=== PATIENT | male | born 1960 | race Caucasian/White ===

== ENCOUNTER 2017-09-01 03:02 | Emergency (ER) | payer OTHER ==
[2017-09-01] MEDS ORDERED: KETOROLAC 60 MG/2 ML VIAL IM STA (03:22)
[2017-09-01] MEDS ORDERED: KETOROLAC 60 MG/2 ML VIAL ONE (03:32)
[2017-09-01 03:46] LABS: PH,URINE 5.5 PH (5.0-7.5)
[2017-09-01 03:56] LABS: BILIRUBIN,URINE NEGATIVE (NEGATIVE); UA CHARGE (STRIP ONLY) YES; UR CULTURE IF IND NOT INDICATED
[2017-09-01] MEDS ORDERED: LIDOCAINE PATCH 5% TOP STA (04:00)
[2017-09-01] MEDS ORDERED: diazePAM 5 MG TABLET PO STA (04:00)
[2017-09-01] MEDS ORDERED: DEXAMETHASONE 10 MG/ML VIAL PO STA (04:00)
[2017-09-01] MEDS ORDERED: CHERRY SYRUP 10 ML UDC PO ONE (04:12)
[2017-09-01] MEDS ORDERED: diazePAM 5 MG TABLET PO ONE (04:12)
[2017-09-01] MEDS ORDERED: DEXAMETHASONE 10 MG/ML VIAL ONE (04:12)
[2017-09-01] MEDS ORDERED: LIDOCAINE PATCH 5% TOP ONE (04:13)
--- NOTE | 2017-09-01 04:26 | ED Physician Documentation ---
PD HPI BACK INJURY - Stated complaint Stated Complaint: RT SIDE,RT BACK PAIN - History obtained from History obtained from: Patient - History of Present Illness Location: Right, Upper, Lower Where injury occurred: Street Timing - onset: How many weeks ago (3) Timing - details: Gradual onset Quality: Pain, Spasm, Aching, Throbbing Worsened by: Moving, Palpating Associated symptoms: No: Fever, Weakness Contributing factors: No: Prior back surgery Similar symptoms before: Has not had sx before Recently seen: Not recently seen - Additional information Additional information: Patient is a 57 year old male with a history of diabetes who is presenting to the emergency department for back pain. patient states that about 3 weeks ago he was out hunting and he was carrying bags on his right side. since that time he has developed persisted right sided back and shoulder pain and has been unable to take a deep breath. Patient has been taking motrin with little relief. Review of Systems Constitutional: denies: Fever, Chills Eyes: reports: Reviewed and negative Ears: reports: Reviewed and negative Nose: reports: Reviewed and negative Throat: reports: Reviewed and negative Respiratory: denies: Cough, Wheezing GI: denies: Abdominal Pain, Nausea, Vomiting : reports: Reviewed and negative. denies: Hematuria Skin: denies: Abrasion (s) Musculoskeletal: reports: Back pain Neurologic: denies: Generalized weakness, Focal weakness, Head injury PD PAST MEDICAL HISTORY - Past Medical History Past Medical History: Yes Cardiovascular: None Respiratory: None Neuro: None Endocrine/Autoimmune: Type 2 diabetes GI: None : None HEENT: None Psych: None Musculoskeletal: None Derm: None - Past Surgical History Past Surgical History: No - Present Medications Home Medications: Ambulatory Orders Medication Instructions Recorded Confirmed Atorvastatin [Lipitor] 40 mg PO DAILY 09/01/17 09/01/17 Azithromycin 250 mg PO DAILY #4 tablet 09/01/17 Diazepam [Valium] 10 mg PO DAILY #10 tablet 09/01/17 Esomeprazole Magnesium [Nexium] 40 mg PO DAILY 09/01/17 09/01/17 Insulin Glargine [Lantus Solostar] 70 units SUBQ BID 09/01/17 09/01/17 Lidocaine Patch 5% [Lidoderm Patch] 1 each TOP DAILY #7 patch 09/01/17 Metformin HCl 1,000 mg PO BID 09/01/17 09/01/17 - Allergies Allergies/Adverse Reactions: Allergies Allergy/AdvReac Type Severity Reaction Status Date / Time yellow fever vaccine live AdvReac Unknown Verified 09/01/17 03:13 - Social History Does the pt smoke?: No Smoking Status: Never smoker Does the pt drink ETOH?: No Does the pt have substance abuse?: No - Immunizations Immunizations are current?: Yes PD ED PE NORMAL - Vitals Vital signs reviewed: Yes - General General: Alert and oriented X 3, No acute distress - HEENT HEENT: Atraumatic, PERRL, Pharynx benign - Neck Neck: Supple, no meningeal sign, No bony TTP - Cardiac Cardiac: RRR, No murmur - Abdomen Abdomen: Soft, Non tender, Non distended - Derm Derm: Normal color, Warm and dry, No rash - Extremities Extremities: No deformity, No edema - Neuro Neuro: Alert and oriented X 3, No motor deficit, No sensory deficit, Normal speech Eye Opening: Spontaneous Motor: Obeys Commands Verbal: Oriented GCS Score: 15 - Psych Psych: Normal mood PD ED PE EXPANDED - HEENT HEENT: Dry mucous membranes - Respiratory Respiratory: Decreased breath sounds, Right lower lobe, Left lower lobe - Back Back: Soft tissue tenderness, Other (tenderness and hypertonicty of musculature of right side of patient back to axillary region) Results - Vitals Vitals: Vital Signs - 24 hr 09/01/17 03:10 Temperature 36.5 C Heart Rate 102 H Respiratory 20 Rate Blood Pressure 143/98 H O2 Saturation 100 Oxygen O2 Source Room air - Labs Labs: Laboratory Tests 09/01/17 03:42 Urine Color DARK YELLOW Urine Clarity CLEAR Urine pH 5.5 Ur Specific [place] >=1.030 H Urine Protein TRACE Urine Glucose (UA) 500 H Urine Ketones 15 H Urine Occult Blood NEGATIVE Urine Nitrite NEGATIVE Urine Bilirubin NEGATIVE Urine Urobilinogen 0.2 (NORMAL) Ur Leukocyte Esterase NEGATIVE Ur Microscopic Review NOT INDICATED Urine Culture Comments NOT INDICATED - Rads (name of study) chest x-ray Radiology: Final report received (no acute fracture or dislocation, there is atelactasis or infiltrate) PD MEDICAL DECISION MAKING - ED course Complexity details: reviewed old records, reviewed results, re-evaluated patient , considered differential, d/w patient, d/w family ED course: Patient was seen and examined at bedside. patient was treated with toradol and urine was collected. there was no blood in the urine indicating stones less likely. chest x-ray was ordered as well as valium and lidoderm. When patient returned from imaging the results were reviewed. there was a possible infiltrate. patient was treated with azithromycin. Patient was made aware that his diabetes was not well controlled. Patient required no further work up and was stable for discharge with outpatient follow up. Departure - Departure Disposition: Home, Self Care Clinical Impression: Muscle spasm of back, Pneumonia Condition: Good Instructions: Pneumonia Dc, ED Spasm Muscle Follow-Up: primary, care provider [Other] Prescriptions: Azithromycin 250 mg PO DAILY #4 tablet Diazepam [Valium] 10 mg PO DAILY #10 tablet Lidocaine Patch 5% [Lidoderm Patch] 1 each TOP DAILY #7 patch Comments: Your x-rays today showed now fractures or dislocations, but you do have fluid/ possible pneumonia form not taking deep breaths. You were treated with toradol , decadron and valium, lidoderm and azithromycin. Going forward you will need to take azithromycin once daily for the next 4 days. You can take motrin or tylenol for pain and valium for spasm. You cannot drive, or operate heavy machinery while taking the valium. You should follow up with your physician if your symptoms persist. You may return to the emergency department at any time for new, worsening or uncontrollable symptoms.
--- NOTE | 2017-09-01 04:49 | XRAY Preliminary Report ---
Exam: XR RIBS W/PA CHEST RT IMPRESSION: 1. No acute fracture seen. 2. Bibasilar atelectasis or infiltrate and possible trace right effusion. 3. Calcific density projecting over the right upper quadrant, possibly gallstone. [facility] SITE ID: [id number]
--- NOTE | 2017-09-01 04:51 | XRAY Report ---
EXAM: RIGHT RIB RADIOGRAPHY EXAM DATE: 09/01/2017 04:21 AM. CLINICAL HISTORY: Right sided rib and back pain. COMPARISON: None. TECHNIQUE: 1 view of the chest and 4 views of the ribs. FINDINGS: Bones: No acute fracture seen. Lungs: Bibasilar atelectasis or infiltrate. Possible trace right effusion. No pneumothorax. Mediastinum: Within exam limitations, heart size is probably normal. Other: Possible calcification in the right upper quadrant. This could be a gallstone. IMPRESSION: 1. No acute fracture seen. 2. Bibasilar atelectasis or infiltrate and possible trace right effusion. 3. Calcific density projecting over the right upper quadrant, possibly gallstone. [facility] Referring Provider Line: [phone] SITE ID: [id number]
[2017-09-01] MEDS ORDERED: AZITHROMYCIN 250 MG TABLET PO STA (04:57)
[2017-09-01] MEDS ORDERED: AZITHROMYCIN 250 MG TABLET PO ONE (05:12)
[2017-09-01 05:24] VITALS: BP 129/89
== END 2017-09-01 05:22 | disposition home or self-care (01) ==
LOC: ED 03:02
DX: J18.9 Pneumonia, unspecified organism (principal); M62.830 Muscle spasm of back; E11.9 Type 2 diabetes mellitus without complications; Z79.4 Long term (current) use of insulin
CPT/HCPCS: 71101; 81003; 96372; 99283; A9270; 81001; 87086

== ENCOUNTER 2017-09-20 12:35 | Inpatient (IN) | payer OTHER ==
[2017-09-20] MEDS ORDERED: levoFLOXacin 250 MG TABLET PO STA (14:32)
--- NOTE | 2017-09-20 14:34 | ED Physician Documentation ---
PD HPI CHEST PAIN - Stated complaint Stated Complaint: FLUID IN LUNG - Chief complaint Chief Complaint: Resp - History obtained from History obtained from: Patient - History of Present Illness Timing - onset: Other (He strained his right chest wall after Thanksgiving. He developed a cough and was seen here on September 01 with pneumonia on a chest x- ray and was started on a Z-Ar which she finished but got worse. Followed up with his physician who did a CT showing a large right pleural effusion and sent here for thoracentesis. He did have a fever the other night which is now gone. Has a persistent cough but denies shortness of breath.) Review of Systems Constitutional: reports: Fever, Fatigue. denies: Chills Nose: denies: Rhinorrhea / runny nose, Congestion Cardiac: reports: Chest pain / pressure Respiratory: reports: Dyspnea, Cough GI: denies: Abdominal Pain PD PAST MEDICAL HISTORY - Past Medical History Past Medical History: Yes Cardiovascular: None Respiratory: None Neuro: None Endocrine/Autoimmune: Type 2 diabetes GI: None : None HEENT: None Psych: None Musculoskeletal: None Derm: None - Past Surgical History Past Surgical History: No - Present Medications Home Medications: Ambulatory Orders Medication Instructions Recorded Confirmed Atorvastatin [Lipitor] 40 mg PO DAILY 09/01/17 09/20/17 Esomeprazole Magnesium [Nexium] 40 mg PO DAILY 09/01/17 09/20/17 Insulin Glargine [Lantus Solostar] 70 units SUBQ BID 09/01/17 09/20/17 Metformin HCl 1,000 mg PO BID 09/01/17 09/20/17 - Allergies Allergies/Adverse Reactions: Allergies Allergy/AdvReac Type Severity Reaction Status Date / Time yellow fever vaccine live AdvReac Unknown Verified 09/20/17 12:54 - Social History Does the pt smoke?: No Smoking Status: Never smoker Does the pt drink ETOH?: No Does the pt have substance abuse?: No - Immunizations Immunizations are current?: Yes PD ED PE NORMAL - Vitals Vital signs reviewed: Yes - General General: Alert and oriented X 3, No acute distress - HEENT HEENT: PERRL, EOMI - Neck Neck: Supple, no meningeal sign, No bony TTP - Cardiac Cardiac: RRR, No murmur - Respiratory Respiratory: No respiratory distress, Other (Diminshed R side) - Extremities Extremities: No edema, No calf tenderness / cord - Neuro Neuro: Alert and oriented X 3, Normal speech Results - Vitals Vitals: Vital Signs - 24 hr 09/20/17 12:47 Temperature 37.6 C H Heart Rate 113 H Respiratory 17 Rate Blood Pressure 132/67 H O2 Saturation 95 Oxygen O2 Source Room air - Labs Labs: Microbiology 09/20/17 14:30 Body Fluid Culture - Preliminary Thoracentesis Laboratory Tests 09/20/17 09/20/17 14:30 15:50 WBC 11.3 H RBC 4.28 L Hgb 11.8 L Hct 35.3 L MCV 82.5 MCH 27.6 MCHC 33.4 RDW 13.9 Plt Count 524 H MPV 7.6 Neut # 7.7 H Lymph # 1.9 [place] # 1.7 H Eos # 0.1 Baso # 0.1 Absolute Nucleated RBC 0.00 Nucleated RBC % 0.0 Fluid Source PLEURAL Fluid Color YELLOW Fluid Clarity TURBID Fluid WBC > 505686 Fluid RBC 79095 Fluid Neutrophils % 69.0 Fluid Lymphocytes % 26.0 Fluid Monocytes % 2.0 Fluid Eosinophils % 3.0 Fld Mesothelial Cell % Not Reportable Procedures - Thoracentesis Preparation: Consent obtained (written), Sterile prep and drape, Sitting, Local - lidocaine Technique: Catheter over needle, Right, Ultrasound used Fluid: Cloudy (purulent), Sent for cell count, Sent for gram stain, Sent for culture, Sent for cytology Aftercare: CXR obtained PD MEDICAL DECISION MAKING - ED course ED course: 57-year-old gentleman with recent pneumonia, now with parapneumonic effusion, thoracentesis done after informed consent, got about 600 mL of leodan pus out. Initial plan was to put him on oral antibiotics but after looking at the fluid and seeing the initial results including positive Gram stain and the fact that he was having chills in the department, plan made for admission and IV was placed with IV antibiotics. Call to the hospitalist for admission at 3:25 PM. Departure - Departure Disposition: 66 [facility] DC/Xfer Clinical Impression: Empyema lung Condition: Serious
--- NOTE | 2017-09-20 15:00 | XRAY Report ---
EXAM: CHEST RADIOGRAPHY EXAM DATE: 09/20/2017 02:44 PM. CLINICAL HISTORY: Thoracentesis. COMPARISON: 09/01/2017. TECHNIQUE: 1 view. FINDINGS: Lungs/Pleura: There is increased opacity within the right lung base. There is no evidence of pneumoth orax. The left lung is relatively clear. Mediastinum: Within exam limitations, the cardiomediastinal contour is normal. Other: None. IMPRESSION: 1. There is heterogeneous opacity within the right lung base which may represent combination of effus ion and airspace disease. 2. There is no evidence of pneumothorax. [facility] Referring Provider Line: [phone] SITE ID: [id number]
[2017-09-20] MEDS ORDERED: cefTRIAXone 2 GM in SODIUM CHLORIDE 0.9% MINIBAG 100 ML IV STA (15:24)
[2017-09-20 15:37] LABS: BF COLOR YELLOW
[2017-09-20 15:38] LABS: BF SOURCE PLEURAL
[2017-09-20 16:01] LABS: BASOPHILS # (AUTO) 0.1 10^3/uL (0.0-0.1); BASOPHILS % (AUTO) 0.6 %; EOSINOPHILS # (AUTO) 0.1 10^3/uL (0.0-0.7); EOSINOPHILS % (AUTO) 0.5 %; HGB - HEMOGLOBIN 11.8 g/dL (14.0-18.0); LYMPHOCYTES # (AUTO) 1.9 10^3/uL (1.5-3.5); LYMPHOCYTES % (AUTO) 16.5 %; MEAN CORPUSCULAR HEMOGLOBIN 27.6 pg (27.0-31.0); MEAN CORPUSCULAR HGB CONC 33.4 g/dL (32.0-36.0); MEAN CORPUSCULAR VOLUME 82.5 fL (80.0-94.0); MEAN PLATELET VOLUME 7.6 fL (7.4-11.4); MONOCYTES # (AUTO) 1.7 10^3/uL (0.0-1.0); MONOCYTES % (AUTO) 14.8 %; NEUTROPHILS # (AUTO) 7.7 10^3/uL (1.5-6.6); NEUTROPHILS % (AUTO) 67.6 %; PLT - PLATELET COUNT 524 10^3/uL (130-450); RED BLOOD COUNT 4.28 10^6/uL (4.70-6.10); RED CELL DISTRIBUTION WIDTH 13.9 % (12.0-15.0); WHITE BLOOD COUNT 11.3 x10^3/uL (4.8-10.8)
[2017-09-20 16:14] LABS: ALBUMIN 2.4 g/dL (3.2-5.5); ALBUMIN/GLOBULIN RATIO 0.5 (1.0-2.2); BILIRUBIN,TOTAL 0.9 mg/dL (0.2-1.0); CALCIUM 8.6 mg/dL (8.5-10.3); CREATININE 1.1 mg/dL (0.6-1.2); TOTAL PROTEIN 7.7 g/dL (6.7-8.2)
[2017-09-20] MEDS ORDERED: TEMAZEPAM 15 MG CAPSULE PO PRN (17:00)
[2017-09-20] MEDS ORDERED: SODIUM CHLORIDE FLUSH 0.9% 10 ML SYRINGE IVP PRN (17:00)
[2017-09-20] MEDS ORDERED: HYDROcod/ACETAM 5/325 MG TABLET PO PRN (17:00)
--- NOTE | 2017-09-20 19:50 | HISTORY & PHYSICAL EXAMINATION ---
Chief Complaint - Chief Complaint Chief Complaint: fever, weakness Respiratory Admission HPI - Admitted From Admitted from: ED - History Obtained From Records Reviewed: Old records reviewed History obtained from: Patient Exam limitations: No limitations - History of Present Illness Location Problem/Description: chest, right lung Severity at the worst: reports: Moderate Context of Onset: reports: Inspiration, Position Timing: reports: Gradual onset Duration: reports: Hours: Improved with: reports: Nothing Worsened by: reports: Exertion, Movement Associated symptoms: reports: Diaphoresis, General weakness HPI Comment/Other: Adria Lugo (Bob) is a morbidly obese 57-year old male with a past medical history of GERD, diabetes mellitus type 2, hypertension, hyperlipidemia, a 25 year PPD smoking history-quit 4 years ago and recent pneumonia, 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 According to the patient, he pulled his right shoulder muscle, which radiated to his right torso on Thanksgiving. He had long standing debility from this event which caused him to sleep in a recliner for some time, in order to be comfortable enough to get sleep. The patient came to this ED on 09/01/17 and was treated with a Z-sang, and admits to finishing the whole antibiotic course. For the past 4 days the patient has had fevers up to 101.1 per , chills, activity intolerance, progressive shortness of breath, continued orthopnea, anorexia, and non- productive cough. Once in the ED a thoracentesis was completed and 600ml of purulent fluid was taken out, sent to the lab for testing including cytology. PMH/PSH - Past Medical History Cardiovascular: positive: None Respiratory: positive: None Neuro: positive: None Endocrine/Autoimmune: positive: Type 2 diabetes GI: positive: None : positive: None HEENT: positive: None Psych: positive: None Musculoskeletal: positive: None Derm: positive: None MRSA Hx?: No Social & Family Hx - Living Situation Living Arrangement: At home Living Situation: With spouse/s.o. 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 He lives independently with his , and 5 dogs. They have 1 biological child, 2 adopted children, all grown. They have several grand-children. - POLST Patient has POLST: No POLST Status: Full Code - Family History Family History: Mother: , CVA/TIA, Father: , COPD/Emphysema Family History Comment/Other: Patient states he is an only child. Meds/Allgy - Home Medications Home Medications: Ambulatory Orders Medication Instructions Recorded Confirmed Atorvastatin [Lipitor] 40 mg PO DAILY 09/01/17 09/20/17 Insulin Glargine [Lantus Solostar] 70 units SUBQ BID 09/01/17 09/20/17 Metformin HCl 1,000 mg PO BID 09/01/17 09/20/17 Aspirin Chewable [[place] 81 mg PO DAILY 09/21/17 09/21/17 Aspirin] Esomeprazole Magnesium [Nexium] 40 mg PO QDAC 09/21/17 09/21/17 Lisinopril [Zestril] 10 mg PO DAILY 09/21/17 09/21/17 - Allergies Allergies/Adverse Reactions: Allergies Allergy/AdvReac Type Severity Reaction Status Date / Time yellow fever vaccine live AdvReac Unknown Verified 09/20/17 12:54 Review of Systems - Constitutional Constitutional: reports: Fever, Chills, Weakness, Poor appetite, Weight loss (20 # in the past few months.) - Eyes Eyes: reports: Corrective lenses. denies: Spots in vision - Ears, Nose & Throat Ears, Nose & Throat: denies: Ear pain, Hearing loss, Sore throat - Cardiovascular Cariovascular: reports: Decr. exercise tolerance, Orthopnea. denies: Irregular heart rate, Edema, Lightheadedness - Respiratory Respiratory: reports: Cough, SOB with exertion, Pleuritic pain. denies: Hemoptysis - Gastrointestinal Gastrointestinal: reports: Reflux/heartburn (GERD). denies: Constipation, Diarrhea, Change in bowel habits, Black stools - Genitourinary Genitourinary: denies: Hematuria, Incontinence - Musculoskeletal Musculoskeletal: reports: Muscle aches - Integumentary Integumentary: denies: Rash - Neurological Neurological: denies: Headache, Memory problems, Seizures - Psychiatric Psychiatric: denies: Depression, Anxiety, Suicidal - Hematologic/Lymphatic Hematologic/Lymphatic: reports: Recurrent infections. denies: Anemia, Blood clots - All Other Systems All Other Systems: reports: Reviewed and negative Exam - Vital Signs Reviewed Vital Signs: Yes Vital Signs: Vital Signs x48h Temp Pulse Resp BP Pulse Ox 09/20/17 17:23 37.5 C 116 H 24 129/78 91 L - Physical Exam General Appearance: positive: No acute distress, Alert, Anxious Eyes Bilateral: positive: Normal inspection ENT: positive: ENT inspection nml, No signs of dehydration Neck: positive: Nml inspection, Thyroid nml, No JVD, Trachea midline, Other ( large neck circumferance.) Respiratory: positive: Chest non-tender, No respiratory distress, Rhonchi (right , absent in low right base.) Cardiovascular: positive: Regular rate & rhythm, Systolic murmur, Gallop/S4 Peripheral Pulses: positive: 2+ Abdomen: positive: Non-tender, Nml bowel sounds, Hepatomegaly Back: positive: Nml inspection Skin: positive: Color nml, No rash, Warm, Dry Extremities: positive: Non-tender, Full ROM, Nml appearance, Pedal edema (mild dependent edema.) Neurologic/Psychiatric: positive: Oriented x3, CN's nml (2-12), Motor nml, Sensation nml, Depressed mood/affect Reflexes: Bicep (R): 4+, Bicep (L): 4+ Results - Lab Results Fish Bones: 09/21/17 05:00 09/21/17 05:00 - Diagnostic Imaging Results Diagnostic Imaging Results: positive: Final report reviewed Diagnostic Imaging Results Comments: 09/01/17 Chest x-ray: FINDINGS: Bones: No acute fracture seen. Lungs: Bibasilar atelectasis or infiltrate. Possible trace right effusion. No pneumothorax. Mediastinum: Within exam limitations, heart size is probably normal. Other: Possible calcification in the right upper quadrant. This could be a gallstone. IMPRESSION: 1. No acute fracture seen. 2. Bibasilar atelectasis or infiltrate and possible trace right effusion. 3. Calcific density projecting over the right upper quadrant, possibly gallstone. Chest x-ray 09/20/17: FINDINGS: Lungs/Pleura: There is increased opacity within the right lung base. There is no evidence of pneumothorax. The left lung is relatively clear. Mediastinum: Within exam limitations, the cardiomediastinal contour is normal. Other: None. IMPRESSION: 1. There is heterogeneous opacity within the right lung base which may represent combination of effusion and airspace disease. 2. There is no evidence of pneumothorax. - EKG Results EKG Interpreted Independently: Yes ARRA - Anticipated LOS Anticipated Stay Length: 2 or more midnights - AMI - Statin at Admit Aspirin Prescribed on Admit: Yes - Stroke - Rehab Assessment Rehab services assessment to be ordered?: No - DVT/VTE - Prophylaxis VTE/DVT Device ordered at admit?: Yes VTE/DVT Prophylaxis med ordered at admit?: Yes Impression/Plan - Problem List Problem List: Parapneumonic effusion: Patient had 600ml of purulent fluid taken off right lung in the ED using ultrasound. Plan: General surgery consulted, Dr. Joseph for possible chest tube placement in AM. Pneumonia, unspecified organism- Patient most recently had pneumonia on 09/01/17 and was treated with a Z-sang. According to a 2-view chest x-ray, patient now has right lobe pneumonia. Plan: Start IV antibiotics, incentive spirometry and nebulizers. Type 2 diabetes mellitus with other specified complication- Patient states he has had diabetes since 2003. He has had a poor appetite lately due to illness. Patient states his blood sugars have been running high at home. Plan: Check HgA1C, monitor blood glucose. Continue home Lantus, but HOLD metformin and use SSI. Orthopnea - Patient has been chair dependent since his recent illness. Plan: Encourage patient to lie in bed at night. Code status: FULL DVT prophylaxis: SCDs as anticoagulation is contraindicated in light of possible procedure.
[2017-09-20] MEDS ORDERED: SODIUM CHLORIDE 0.9% 1,000 ML IV SCH (20:00)
[2017-09-20] MEDS: SODIUM CHLORIDE FLUSH 0.9% 10 ML SYRINGE IVP SCH (20:47)
[2017-09-20] MEDS: cefTRIAXone 2 GM in SODIUM CHLORIDE 0.9% MINIBAG 100 ML IV SCH (20:47)
[2017-09-20] MEDS: ENOXAPARIN 40 MG/0.4 ML SYRINGE SUBQ SCH (20:48)
[2017-09-20] MEDS ORDERED: INSULIN GLARGINE 300 UNIT/3 ML PEN SUBQ SCH (21:00)
[2017-09-20] MEDS: INSULIN GLARGINE 300 UNIT/3 ML PEN SUBQ SCH (21:07)
[2017-09-20] MEDS: CLINDAMYCIN IV SCH (21:40)
[2017-09-20] MEDS: SODIUM CHLORIDE 0.9% IV SCH (21:40)
[2017-09-20] MEDS ORDERED: ACETAMINOPHEN 325 MG TABLET PO PRN (23:51)
[2017-09-21 01:30] LABS: HB2 TOTAL 11.5 g/dL; HEMOGLOBIN A1C 1.27 g/dL; HEMOGLOBIN A1C % 12.3 % (4.6-6.2)
[2017-09-21] MEDS: IBUPROFEN 600 MG TABLET PO SCH ×6 (03:06→23:58)
[2017-09-21 05:22] LABS: BASOPHILS % (AUTO) 0.4 %; EOSINOPHILS # (AUTO) 0.1 10^3/uL (0.0-0.7); EOSINOPHILS % (AUTO) 1.9 %; HGB - HEMOGLOBIN 11.3 g/dL (14.0-18.0); LYMPHOCYTES # (AUTO) 2.1 10^3/uL (1.5-3.5); LYMPHOCYTES % (AUTO) 26.8 %; MEAN CORPUSCULAR HEMOGLOBIN 27.4 pg (27.0-31.0); MEAN PLATELET VOLUME 7.5 fL (7.4-11.4); MONOCYTES # (AUTO) 1.4 10^3/uL (0.0-1.0); MONOCYTES % (AUTO) 18.6 %; NEUTROPHILS # (AUTO) 4.1 10^3/uL (1.5-6.6); NEUTROPHILS % (AUTO) 52.3 %; PLT - PLATELET COUNT 440 10^3/uL (130-450); RED BLOOD COUNT 4.14 10^6/uL (4.70-6.10); RED CELL DISTRIBUTION WIDTH 13.7 % (12.0-15.0); WHITE BLOOD COUNT 7.8 x10^3/uL (4.8-10.8)
[2017-09-21] MEDS: SODIUM CHLORIDE 0.9% IV SCH (05:39)
[2017-09-21] MEDS: CLINDAMYCIN IV SCH (05:39)
[2017-09-21 05:40] LABS: ALBUMIN/GLOBULIN RATIO 0.4 (1.0-2.2); BILIRUBIN,TOTAL 0.6 mg/dL (0.2-1.0); CALCIUM 8.1 mg/dL (8.5-10.3); CREATININE 0.8 mg/dL (0.6-1.2); MAGNESIUM 1.6 mg/dL (1.7-2.8); PHOSPHORUS 3.7 mg/dL (2.5-4.6); TOTAL PROTEIN 6.8 g/dL (6.7-8.2)
[2017-09-21] MEDS: SODIUM CHLORIDE FLUSH 0.9% 10 ML SYRINGE IVP SCH ×3 (05:48→21:29)
[2017-09-21 06:01] LABS: HB2 TOTAL 11.9 g/dL; HEMOGLOBIN A1C 1.22 g/dL; HEMOGLOBIN A1C % 11.5 % (4.6-6.2)
[2017-09-21 06:28] LABS: INR 1.8 (0.8-1.2); PT - PROTHROMBIN TIME 19.4 secs (9.9-12.6)
[2017-09-21] MEDS: ATORVASTATIN 40 MG TABLET PO SCH (08:35)
[2017-09-21] MEDS: POLYETHYLENE GLYCOL 3350 17 GM PACKET PO SCH (08:36)
[2017-09-21] MEDS: INSULIN GLARGINE 300 UNIT/3 ML PEN SUBQ SCH ×2 (08:37→20:52)
[2017-09-21] MEDS: ENOXAPARIN 40 MG/0.4 ML SYRINGE SUBQ SCH (08:37)
[2017-09-21] MEDS: INSULIN ASPART 300 UNIT/3 ML PEN SUBQ SCH ×4 (08:37→20:52)
[2017-09-21] MEDS: PANTOPRAZOLE 40 MG TABLET PO SCH (08:43)
[2017-09-21] MEDS: CLINDAMYCIN 600 MG/50 ML 50 ML IV SCH ×2 (14:07→21:36)
[2017-09-21] MEDS ORDERED: BUPIVACAINE 0.25%-EPI 1:200000 PF 30 ML VIAL SUBQ ONE ×2 (16:03)
[2017-09-21] MEDS ORDERED: LACTATED RINGERS 1,000 ML IV ONE (16:08)
[2017-09-21] MEDS ORDERED: HYDROmorphone PCA 10 MG IV PRN (17:00)
[2017-09-21] MEDS ORDERED: MORPHINE PCA 50 MG IV PRN (17:10)
--- NOTE | 2017-09-21 17:24 | PROVIDER PROGRESS NOTE ---
Subjective - Prog Note Date Prog Note Date: 09/21/17 Prog Note Time: 17:21 - Subjective Pt reports feeling: Improved, No change Subjective: Ras is happy with getting his chest tube placed by Dr. Joseph. He denies SOB, chest pain- except near chest tube site, nausea, vomiting or dizziness. is at bedside. Current Medications - Current Medications Current Medications: Active Medications Acetaminophen (Tylenol) 650 mg PO Q4HR PRN PRN Reason: Pain or Fever > 38C (100.4F) Acetaminophen/Hydrocodone Bitart ([place] 5/325) 1 tab PO Q4HR PRN PRN Reason: Pain 5 to 7 Atorvastatin Calcium (Lipitor) 40 mg PO DAILY [facility] Last Admin: 09/21/17 08:35 Dose: 40 mg Ceftriaxone Sodium 2 gm/ (Sodium Chloride) 100 mls @ 200 mls/hr IV HS [facility] Last Infusion: 09/20/17 22:10 Dose: Infused Clindamycin Phosphate (Cleocin 600 Mg/50 Ml) 50 mls @ 100 mls/hr IV Q8HR [facility] Last Infusion: 09/21/17 14:49 Dose: Infused Sodium Chloride (Normal Saline 0.9%) 1,000 mls @ 20 mls/hr IV .Q48H SARAI PRN Reason: TKO Ibuprofen (Motrin) 600 mg PO Q6HR [facility] Last Admin: 09/21/17 18:30 Dose: Not Given Insulin Aspart (Novolog) 1 - 9 unit SUBQ 0800,1200,1700,2100 SARAI PRN Reason: Protocol Last Admin: 09/21/17 18:08 Dose: 1 unit Insulin Glargine (Lantus Solostar) 70 unit SUBQ BID [facility] Last Admin: 09/21/17 08:37 Dose: 70 unit Morphine Sulfate/Sodium Chloride (Morphine Scanning Manager (Use Scanning Manager Order Set)) 50 mg IV FILE DRAWER FINISHER PRN; Protocol PRN Reason: PAIN Last Admin: 09/21/17 18:09 Dose: 50 mg Pantoprazole Sodium (Protonix) 40 mg PO QDAC [facility] Last Admin: 09/21/17 08:43 Dose: 40 mg Polyethylene Glycol (Miralax) 17 gm PO DAILY [facility] Last Admin: 09/21/17 08:36 Dose: Not Given Sodium Chloride (Normal Saline Flush 0.9%) 10 ml IVP PRN PRN PRN Reason: NEEDED PER PROVIDER ORDERS Last Admin: 09/21/17 18:13 Dose: 10 ml Sodium Chloride (Normal Saline Flush 0.9%) 10 ml IVP Q8HR SARAI Last Admin: 09/21/17 14:08 Dose: 10 ml Temazepam (Restoril) 15 mg PO QPM PRN PRN Reason: Insomnia Atorvastatin [Lipitor] 40 mg PO DAILY 09/01/17 Insulin Glargine [Lantus Solostar] 70 units SUBQ BID 09/01/17 Metformin HCl 1,000 mg PO BID 09/01/17 Aspirin Chewable [St Fabián Aspirin] 81 mg PO DAILY 09/21/17 Esomeprazole Magnesium [Nexium] 40 mg PO QDAC 09/21/17 Lisinopril [Zestril] 10 mg PO DAILY 09/21/17 Objective - Vital Signs/Intake & Output Reviewed Vital Signs: Yes Vital Signs: Vital Signs x48h Temp Pulse Resp BP BP Pulse Ox 09/21/17 17:00 36.4 C L 89 14 148/76 H 92 09/21/17 15:28 36.4 C L 78 18 141/89 H 95 09/21/17 12:14 78 16 143/81 H 96 Intake & Output: Intake & Output 09/18/17 09/19/17 09/20/17 09/21/17 23:59 23:59 23:59 23:59 Intake Total 734 1804 Balance 734 1804 - Objective General Appearance: positive: No acute distress, Alert Eyes Bilateral: positive: Normal inspection ENT: positive: ENT inspection nml, Pharynx nml, No signs of dehydration Neck: positive: Nml inspection, Thyroid nml, No JVD, Trachea midline, Other ( large neck circumference) Respiratory: positive: No respiratory distress, Rhonchi (right sided lobe, improved from 24 hours ago, which was absent lung sounds in low base.) Cardiovascular: positive: Regular rate & rhythm, Systolic murmur Peripheral Pulses: 2+ Radial (R), 2+ Radial (L) Abdomen: positive: Non-tender, No organomegaly, Nml bowel sounds, Other (rounded , obese) Back: positive: Nml inspection, CVA tenderness (R) (bandaide, mid-back.) Skin: positive: Color nml, No rash, Warm, Dry Extremities: positive: Non-tender, Full ROM, Nml appearance, Pedal edema (mild) Neurologic/Psychiatric: positive: Oriented x3, CN's nml (2-12), Motor nml, Sensation nml, Depressed mood/affect, Other (anxious) Reflexes: Bicep (R): 4+, Bicep (L): 4+ - Lab Results Fish Bones: 09/21/17 05:00 09/21/17 05:00 Other Labs: Lab Results x24hrs 09/21/17 09/21/17 09/21/17 Range/Units 11:42 07:31 06:15 WBC (4.8-10.8) x10^3/uL RBC (4.70-6.10) 10^6/uL Hgb (14.0-18.0) g/dL Hct (42.0-52.0) % MCV (80.0-94.0) fL MCH (27.0-31.0) pg MCHC (32.0-36.0) g/dL RDW (12.0-15.0) % Plt Count (130-450) 10^3/uL MPV (7.4-11.4) fL Neut # (1.5-6.6) 10^3/uL Lymph # (1.5-3.5) 10^3/uL [place] # (0.0-1.0) 10^3/uL Eos # (0.0-0.7) 10^3/uL Baso # (0.0-0.1) 10^3/uL Absolute Nucleated RBC x10^3/uL Nucleated RBC % /100WBC ESR (0-20) mm/Hr PT 19.4 H (9.9-12.6) secs INR 1.8 H (0.8-1.2) Sodium (135-145) mmol/L Potassium (3.5-5.0) mmol/L Chloride (101-111) mmol/L Carbon Dioxide (21-32) mmol/L Anion Gap (6-13) BUN (6-20) mg/dL Creatinine (0.6-1.2) mg/dL Estimated GFR (MDRD) (>89) Glucose (70-100) mg/dL POC Whole Bld Glucose 218 H 244 H (70 - 100) mg/dL Glycated Hemoglobin (4.6-6.2) % Estim Average Glucose (70-100) Calcium (8.5-10.3) mg/dL Phosphorus (2.5-4.6) mg/dL Magnesium (1.7-2.8) mg/dL Total Bilirubin (0.2-1.0) mg/dL AST (10-42) IU/L ALT (10-60) IU/L Alkaline Phosphatase (42-121) IU/L C-Reactive Protein (0-1.0) mg/dL Total Protein (6.7-8.2) g/dL Albumin (3.2-5.5) g/dL Globulin (2.1-4.2) g/dL Albumin/Globulin Ratio (1.0-2.2) 09/21/17 09/21/17 09/21/17 Range/Units 05:00 05:00 05:00 WBC 7.8 (4.8-10.8) x10^3/uL RBC 4.14 L (4.70-6.10) 10^6/uL Hgb 11.3 L (14.0-18.0) g/dL Hct 34.3 L (42.0-52.0) % MCV 83.0 (80.0-94.0) fL MCH 27.4 (27.0-31.0) pg MCHC 33.0 (32.0-36.0) g/dL RDW 13.7 (12.0-15.0) % Plt Count 440 (130-450) 10^3/uL MPV 7.5 (7.4-11.4) fL Neut # 4.1 (1.5-6.6) 10^3/uL Lymph # 2.1 (1.5-3.5) 10^3/uL [place] # 1.4 H (0.0-1.0) 10^3/uL Eos # 0.1 (0.0-0.7) 10^3/uL Baso # 0.0 (0.0-0.1) 10^3/uL Absolute Nucleated RBC 0.00 x10^3/uL Nucleated RBC % 0.1 /100WBC ESR 2 (0-20) mm/Hr PT (9.9-12.6) secs INR (0.8-1.2) Sodium (135-145) mmol/L Potassium (3.5-5.0) mmol/L Chloride (101-111) mmol/L Carbon Dioxide (21-32) mmol/L Anion Gap (6-13) BUN (6-20) mg/dL Creatinine (0.6-1.2) mg/dL Estimated GFR (MDRD) (>89) Glucose (70-100) mg/dL POC Whole Bld Glucose (70 - 100) mg/dL Glycated Hemoglobin 11.5 H (4.6-6.2) % Estim Average Glucose 283 H (70-100) Calcium (8.5-10.3) mg/dL Phosphorus (2.5-4.6) mg/dL Magnesium (1.7-2.8) mg/dL Total Bilirubin (0.2-1.0) mg/dL AST (10-42) IU/L ALT (10-60) IU/L Alkaline Phosphatase (42-121) IU/L C-Reactive Protein (0-1.0) mg/dL Total Protein (6.7-8.2) g/dL Albumin (3.2-5.5) g/dL Globulin (2.1-4.2) g/dL Albumin/Globulin Ratio (1.0-2.2) 09/21/17 09/20/17 Range/Units 05:00 20:16 WBC (4.8-10.8) x10^3/uL RBC (4.70-6.10) 10^6/uL Hgb (14.0-18.0) g/dL Hct (42.0-52.0) % MCV (80.0-94.0) fL MCH (27.0-31.0) pg MCHC (32.0-36.0) g/dL RDW (12.0-15.0) % Plt Count (130-450) 10^3/uL MPV (7.4-11.4) fL Neut # (1.5-6.6) 10^3/uL Lymph # (1.5-3.5) 10^3/uL [place] # (0.0-1.0) 10^3/uL Eos # (0.0-0.7) 10^3/uL Baso # (0.0-0.1) 10^3/uL Absolute Nucleated RBC x10^3/uL Nucleated RBC % /100WBC ESR (0-20) mm/Hr PT (9.9-12.6) secs INR (0.8-1.2) Sodium 134 L (135-145) mmol/L Potassium 4.1 (3.5-5.0) mmol/L Chloride 98 L (101-111) mmol/L Carbon Dioxide 26 (21-32) mmol/L Anion Gap 10.0 (6-13) BUN 15 (6-20) mg/dL Creatinine 0.8 (0.6-1.2) mg/dL Estimated GFR (MDRD) 100 (>89) Glucose 204 H (70-100) mg/dL POC Whole Bld Glucose 316 H (70 - 100) mg/dL Glycated Hemoglobin (4.6-6.2) % Estim Average Glucose (70-100) Calcium 8.1 L (8.5-10.3) mg/dL Phosphorus 3.7 (2.5-4.6) mg/dL Magnesium 1.6 L (1.7-2.8) mg/dL Total Bilirubin 0.6 (0.2-1.0) mg/dL AST 35 (10-42) IU/L ALT 29 (10-60) IU/L Alkaline Phosphatase 74 (42-121) IU/L C-Reactive Protein 11.0 H (0-1.0) mg/dL Total Protein 6.8 (6.7-8.2) g/dL Albumin 2.0 L (3.2-5.5) g/dL Globulin 4.8 H (2.1-4.2) g/dL Albumin/Globulin Ratio 0.4 L (1.0-2.2) - Diagnostic Imaging Diagnostic Imaging Results: positive: Prelim report reviewed, Final report reviewed Diagnostic Imaging Comments: Chest x-ray: 09/21/17 POST-chest tube; FINDINGS: Lungs/Pleura: Right chest tube tip projects over the medial lung base. There is opacity within the left base which likely represents effusion and airspace disease. No evidence of pneumothorax. Mediastinum: Within exam limitations, the cardiomediastinal contour is normal. Other: None. IMPRESSION: Right chest tube tip projects over the medial lung base. Interval decrease in opaciof airspace disease within the right base. No evidence of pneumothorax. Assessment/Plan - Problem List (1) Pneumonia, unspecified organism Impression: Patient most recently had pneumonia on 09/01/17 and was treated with a Z-sang. According to a 2-view chest x-ray, patient now has right lobe pneumonia. Now patient is status post right large bore chest tube. Cultures from 1st ED pleural sample is pending. Plan: Start IV antibiotics, incentive spirometry and nebulizers. (2) Type 2 diabetes mellitus with other specified complication Impression: HgA1C was elevated at 11.5. Lantus is prescribed as usual at 70 units BID. Plan: Continue to monitor blood glucose. 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 This has been much improved since chest tube is in place. Plan: Encourage patient to lie in bed at night. (4) Other artificial opening status Impression: Patient had 600ml of purulent fluid taken off right lung in the ED using ultrasound. General surgery consulted, Dr. Joseph. A large bore right anterior chest tube is not in place to wall suction. Plan: Morphine FILE DRAWER FINISHER for pain control post procedure and maintain wall suction.
--- NOTE | 2017-09-21 17:37 | XRAY Report ---
EXAM: CHEST RADIOGRAPHY EXAM DATE: 09/21/2017 05:10 PM. CLINICAL HISTORY: Chest tube placement. COMPARISON: 09/20/2017. TECHNIQUE: 1 view. FINDINGS: Lungs/Pleura: Right chest tube tip projects over the medial lung base. There is opacity within the le ft base which likely represents effusion and airspace disease. No evidence of pneumothorax. Mediastinum: Within exam limitations, the cardiomediastinal contour is normal. Other: None. IMPRESSION: Right chest tube tip projects over the medial lung base. Interval decrease in opacity of airspace disease within the right base. No evidence of pneumothorax. [facility] Referring Provider Line: [phone] SITE ID: [id number]
--- NOTE | 2017-09-21 18:04 | XRAY Report ---
EXAM: FLUOROSCOPIC GUIDANCE EXAM DATE: 09/21/2017 04:36 PM. CLINICAL HISTORY: RIGHT CHEST TUBE INSERTION. COMPARISON: None. FINDINGS: Fluoroscopy for procedure guidance. IMPRESSION: Fluoroscopic guidance provided for Dr. Joseph. Total fluoroscopy time: 56 seconds. Shane r of images: 1. [facility] Referring Provider Line: [phone] SITE ID: [id number]
[2017-09-21] MEDS ORDERED: SODIUM CHLORIDE 0.9% 1,000 ML IV SCH (20:00)
[2017-09-21] MEDS ORDERED: guaiFENesin 600 MG TABLET PO PRN (20:21)
[2017-09-21] MEDS: cefTRIAXone 2 GM in SODIUM CHLORIDE 0.9% MINIBAG 100 ML IV SCH (20:51)
[2017-09-22 05:42] LABS: BASOPHILS % (AUTO) 0.3 %; EOSINOPHILS # (AUTO) 0.2 10^3/uL (0.0-0.7); EOSINOPHILS % (AUTO) 1.6 %; HGB - HEMOGLOBIN 11.2 g/dL (14.0-18.0); LYMPHOCYTES # (AUTO) 1.6 10^3/uL (1.5-3.5); LYMPHOCYTES % (AUTO) 13.2 %; MEAN CORPUSCULAR HEMOGLOBIN 27.5 pg (27.0-31.0); MEAN CORPUSCULAR HGB CONC 33.1 g/dL (32.0-36.0); MEAN PLATELET VOLUME 7.6 fL (7.4-11.4); MONOCYTES # (AUTO) 1.4 10^3/uL (0.0-1.0); MONOCYTES % (AUTO) 11.5 %; NEUTROPHILS % (AUTO) 73.4 %; PLT - PLATELET COUNT 444 10^3/uL (130-450); RED BLOOD COUNT 4.08 10^6/uL (4.70-6.10); RED CELL DISTRIBUTION WIDTH 13.8 % (12.0-15.0); WHITE BLOOD COUNT 12.3 x10^3/uL (4.8-10.8)
[2017-09-22 05:54] LABS: ALBUMIN 2.2 g/dL (3.2-5.5); ALBUMIN/GLOBULIN RATIO 0.5 (1.0-2.2); BILIRUBIN,TOTAL 0.4 mg/dL (0.2-1.0); CALCIUM 7.9 mg/dL (8.5-10.3); CREATININE 0.7 mg/dL (0.6-1.2); TOTAL PROTEIN 6.8 g/dL (6.7-8.2)
[2017-09-22] MEDS: PANTOPRAZOLE 40 MG TABLET PO SCH (06:10)
[2017-09-22] MEDS: IBUPROFEN 600 MG TABLET PO SCH ×3 (06:10→17:57)
[2017-09-22] MEDS: CLINDAMYCIN 600 MG/50 ML 50 ML IV SCH ×3 (06:11→21:41)
[2017-09-22] MEDS: SODIUM CHLORIDE FLUSH 0.9% 10 ML SYRINGE IVP SCH ×3 (06:13→21:42)
--- NOTE | 2017-09-22 07:16 | PROVIDER PROGRESS NOTE ---
Subjective - Prog Note Date Prog Note Date: 09/22/17 Prog Note Time: 07:16 - Subjective Pt reports feeling: Improved Subjective: Ras (preferred name) admits to feeling improved, although tired today. He denies SOB, chest pain, N/V or a new cough. In fact, his coughing has subsided. was present for exam and patient was caught independently performing incentive spirometry. Current Medications - Current Medications Current Medications: Active Medications Acetaminophen (Tylenol) 650 mg PO Q4HR PRN PRN Reason: Pain or Fever > 38C (100.4F) Acetaminophen/Hydrocodone Bitart ([place] 5/325) 1 tab PO Q4HR PRN PRN Reason: Pain 5 to 7 Atorvastatin Calcium (Lipitor) 40 mg PO DAILY [facility] Last Admin: 09/22/17 08:48 Dose: 40 mg Guaifenesin (Mucinex) 600 mg PO BID PRN PRN Reason: Cough Ceftriaxone Sodium 2 gm/ (Sodium Chloride) 100 mls @ 200 mls/hr IV HS [facility] Last Infusion: 09/22/17 22:38 Dose: Infused Clindamycin Phosphate (Cleocin 600 Mg/50 Ml) 50 mls @ 100 mls/hr IV Q8HR [facility] Last Infusion: 09/22/17 22:37 Dose: Infused Sodium Chloride (Normal Saline 0.9%) 1,000 mls @ 20 mls/hr IV .Q48H SARAI PRN Reason: TKO Last Infusion: 09/22/17 14:37 Dose: 0 mls/hr Ibuprofen (Motrin) 600 mg PO Q6HR [facility] Last Admin: 09/22/17 17:57 Dose: 600 mg Insulin Aspart (Novolog) 1 - 9 unit SUBQ 0800,1200,1700,2100 SARAI PRN Reason: Protocol Last Admin: 09/22/17 21:14 Dose: 5 unit Insulin Glargine (Lantus Solostar) 72 unit SUBQ BID [facility] Magnesium Oxide (Mag Ox) 400 mg PO BID [facility] Stop: 09/25/17 08:59 Morphine Sulfate/Sodium Chloride (Morphine Call Center Coordinator (Use Call Center Coordinator Order Set)) 50 mg IV RESIDENT MANAGER PRN; Protocol PRN Reason: PAIN Last Admin: 09/21/17 18:09 Dose: 50 mg Pantoprazole Sodium (Protonix) 40 mg PO QDAC [facility] Last Admin: 09/22/17 06:10 Dose: 40 mg Polyethylene Glycol (Miralax) 17 gm PO DAILY [facility] Last Admin: 09/22/17 08:48 Dose: Not Given Sodium Chloride (Normal Saline Flush 0.9%) 10 ml IVP PRN PRN PRN Reason: NEEDED PER PROVIDER ORDERS Last Admin: 09/21/17 18:13 Dose: 10 ml Sodium Chloride (Normal Saline Flush 0.9%) 10 ml IVP Q8HR [facility] Last Admin: 09/22/17 21:42 Dose: Not Given Temazepam (Restoril) 15 mg PO QPM PRN PRN Reason: Insomnia Atorvastatin [Lipitor] 40 mg PO DAILY 09/01/17 Insulin Glargine [Lantus Solostar] 70 units SUBQ BID 09/01/17 Metformin HCl 1,000 mg PO BID 09/01/17 Aspirin Chewable [St Fabián Aspirin] 81 mg PO DAILY 09/21/17 Esomeprazole Magnesium [Nexium] 40 mg PO QDAC 09/21/17 Lisinopril [Zestril] 10 mg PO DAILY 09/21/17 Objective - Vital Signs/Intake & Output Reviewed Vital Signs: Yes Vital Signs: Vital Signs x48h Temp Pulse Resp BP Pulse Ox 09/22/17 05:00 36.9 C 96 17 135/73 H 93 09/22/17 04:30 15 09/22/17 01:05 37.1 C 09/22/17 00:00 38.0 C H 99 16 125/71 93 Intake & Output: Intake & Output 09/19/17 09/20/17 09/21/17 09/22/17 23:59 23:59 23:59 23:59 Intake Total 734 2254 300 Output Total 640 325 Balance 734 1614 -25 - Objective General Appearance: positive: No acute distress, Alert Eyes Bilateral: positive: Normal inspection ENT: positive: ENT inspection nml, Pharynx nml, No signs of dehydration Neck: positive: Nml inspection, Thyroid nml, No JVD, Trachea midline, Other ( large neck circumferance.) Respiratory: positive: No respiratory distress, Rhonchi (right, left is clear.) Cardiovascular: positive: Regular rate & rhythm, No gallop, Decreased pulse(s) ( Bilateral low extremities.) Peripheral Pulses: 2+ Radial (R), 2+ Radial (L) Abdomen: positive: Non-tender, Nml bowel sounds, Other (rounded, obese, and soft.) Back: positive: Nml inspection, CVA tenderness (R) (related to chest tube incertion site.) Skin: positive: No rash, Warm, Dry, Other (Right chest tube site is CDI. less drainage from chest tube-serosangunas.) Extremities: positive: Non-tender, Full ROM, Pedal edema (likely dependent edema.) Reflexes: Bicep (R): 3+, Bicep (L): 3+ - Lab Results Fish Bones: 09/22/17 05:26 09/22/17 05:26 Other Labs: Lab Results x24hrs 09/22/17 09/22/17 09/21/17 Range/Units 05:26 05:26 20:38 WBC 12.3 H (4.8-10.8) x10^3/uL RBC 4.08 L (4.70-6.10) 10^6/uL Hgb 11.2 L (14.0-18.0) g/dL Hct 33.9 L (42.0-52.0) % MCV 83.0 (80.0-94.0) fL MCH 27.5 (27.0-31.0) pg MCHC 33.1 (32.0-36.0) g/dL RDW 13.8 (12.0-15.0) % Plt Count 444 (130-450) 10^3/uL MPV 7.6 (7.4-11.4) fL Neut # 9.0 H (1.5-6.6) 10^3/uL Lymph # 1.6 (1.5-3.5) 10^3/uL [place] # 1.4 H (0.0-1.0) 10^3/uL Eos # 0.2 (0.0-0.7) 10^3/uL Baso # 0.0 (0.0-0.1) 10^3/uL Absolute Nucleated RBC 0.00 x10^3/uL Nucleated RBC % 0.0 /100WBC Sodium 133 L (135-145) mmol/L Potassium 4.0 (3.5-5.0) mmol/L Chloride 98 L (101-111) mmol/L Carbon Dioxide 26 (21-32) mmol/L Anion Gap 9.0 (6-13) BUN 10 (6-20) mg/dL Creatinine 0.7 (0.6-1.2) mg/dL Estimated GFR (MDRD) 117 (>89) Glucose 198 H (70-100) mg/dL POC Whole Bld Glucose 178 H (70 - 100) mg/dL Calcium 7.9 L (8.5-10.3) mg/dL Total Bilirubin 0.4 (0.2-1.0) mg/dL AST 30 (10-42) IU/L ALT 31 (10-60) IU/L Alkaline Phosphatase 71 (42-121) IU/L Total Protein 6.8 (6.7-8.2) g/dL Albumin 2.2 L (3.2-5.5) g/dL Globulin 4.6 H (2.1-4.2) g/dL Albumin/Globulin Ratio 0.5 L (1.0-2.2) 09/21/17 09/21/17 09/21/17 Range/Units 17:18 11:42 07:31 WBC (4.8-10.8) x10^3/uL RBC (4.70-6.10) 10^6/uL Hgb (14.0-18.0) g/dL Hct (42.0-52.0) % MCV (80.0-94.0) fL MCH (27.0-31.0) pg MCHC (32.0-36.0) g/dL RDW (12.0-15.0) % Plt Count (130-450) 10^3/uL MPV (7.4-11.4) fL Neut # (1.5-6.6) 10^3/uL Lymph # (1.5-3.5) 10^3/uL [place] # (0.0-1.0) 10^3/uL Eos # (0.0-0.7) 10^3/uL Baso # (0.0-0.1) 10^3/uL Absolute Nucleated RBC x10^3/uL Nucleated RBC % /100WBC Sodium (135-145) mmol/L Potassium (3.5-5.0) mmol/L Chloride (101-111) mmol/L Carbon Dioxide (21-32) mmol/L Anion Gap (6-13) BUN (6-20) mg/dL Creatinine (0.6-1.2) mg/dL Estimated GFR (MDRD) (>89) Glucose (70-100) mg/dL POC Whole Bld Glucose 144 H 218 H 244 H (70 - 100) mg/dL Calcium (8.5-10.3) mg/dL Total Bilirubin (0.2-1.0) mg/dL AST (10-42) IU/L ALT (10-60) IU/L Alkaline Phosphatase (42-121) IU/L Total Protein (6.7-8.2) g/dL Albumin (3.2-5.5) g/dL Globulin (2.1-4.2) g/dL Albumin/Globulin Ratio (1.0-2.2) - Diagnostic Imaging Diagnostic Imaging Results: positive: Prelim report reviewed, Final report reviewed Assessment/Plan - Problem List (1) Pneumonia, unspecified organism Impression: Patient most recently had pneumonia on 09/01/17 and was treated with a Z-sang. According to a 2-view chest x-ray, patient has right lobe pneumonia. General surgery, Dr. Joseph has placed a right large bore chest tube and it is on continuous low wall suction. Cultures from 1st ED pleural sample are pending, including cytology. Plan: Continue IV antibiotics, incentive spirometry and nebulizers. Encourage ambulation. (2) Type 2 diabetes mellitus with other specified complication Impression: HgA1C was elevated at 11.5. Lantus was increased today to 72 units BID due to early AM blood glucose. Plan: Continue to monitor blood glucose. 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 This has been much improved since chest tube is in place. Patient admits to sleeping in the bed for part of last night. Plan: Encourage patient to lie in bed at night. (4) Other artificial opening status Impression: Patient had 600ml of purulent fluid taken off right lung in the ED using ultrasound. General surgery consulted, Dr. Joseph. A large bore right anterior chest tube is to wall suction. Dressing appears to be CDI with no drainage. No crepitus noted. Plan: Morphine RESIDENT MANAGER for pain control post procedure and maintain wall suction.
[2017-09-22] MEDS: POLYETHYLENE GLYCOL 3350 17 GM PACKET PO SCH (08:48)
[2017-09-22] MEDS: INSULIN ASPART 300 UNIT/3 ML PEN SUBQ SCH ×4 (08:48→21:14)
[2017-09-22] MEDS: ATORVASTATIN 40 MG TABLET PO SCH (08:48)
[2017-09-22] MEDS: INSULIN GLARGINE 300 UNIT/3 ML PEN SUBQ SCH ×2 (08:51→21:25)
[2017-09-22] MEDS ORDERED: IOPAMIDOL-300 100 ML VIAL ONE (17:56)
[2017-09-22] MEDS: cefTRIAXone 2 GM in SODIUM CHLORIDE 0.9% MINIBAG 100 ML IV SCH (21:06)
[2017-09-22] MEDS ORDERED: INSULIN GLARGINE 300 UNIT/3 ML PEN SUBQ SCH (21:35)
--- NOTE | 2017-09-22 23:42 | PROVIDER PROGRESS NOTE ---
Subjective - General Admit Date: 09/20/17 Procedure Date: 09/21/17 Post Op Days: 1 - Review of Systems Drain Type: 300 ml Drain Output Description: purulent All Other Systems: positive: Reviewed and negative Objective - Patient Data Vital Signs: Vital Signs x48h Temp Pulse Resp BP Pulse Ox 09/22/17 21:24 36.7 C 85 18 131/70 H 97 09/22/17 20:00 16 09/22/17 16:35 18 09/22/17 15:59 36.9 C 83 17 98/64 95 Weight: Weight 09/20/17 09/21/17 09/22/17 23:59 23:59 23:59 Weight (kg) 131.542 kg 126 kg 124.5 kg Intake & Output: Intake and Output Totals x24h 09/20/17 09/21/17 09/22/17 23:59 23:59 23:59 Intake Total 734 2254 2103 Output Total 640 535 Balance 734 1614 1568 - Lab Results Lab Results: 09/22/17 05:26 09/22/17 05:26 Other Lab Results: Lab Results x24hrs 09/22/17 09/22/17 09/22/17 Range/Units 20:39 16:26 11:29 WBC (4.8-10.8) x10^3/uL RBC (4.70-6.10) 10^6/uL Hgb (14.0-18.0) g/dL Hct (42.0-52.0) % MCV (80.0-94.0) fL MCH (27.0-31.0) pg MCHC (32.0-36.0) g/dL RDW (12.0-15.0) % Plt Count (130-450) 10^3/uL MPV (7.4-11.4) fL Neut # (1.5-6.6) 10^3/uL Lymph # (1.5-3.5) 10^3/uL [place] # (0.0-1.0) 10^3/uL Eos # (0.0-0.7) 10^3/uL Baso # (0.0-0.1) 10^3/uL Absolute Nucleated RBC x10^3/uL Nucleated RBC % /100WBC Sodium (135-145) mmol/L Potassium (3.5-5.0) mmol/L Chloride (101-111) mmol/L Carbon Dioxide (21-32) mmol/L Anion Gap (6-13) BUN (6-20) mg/dL Creatinine (0.6-1.2) mg/dL Estimated GFR (MDRD) (>89) Glucose (70-100) mg/dL POC Whole Bld Glucose 227 H 178 H 197 H (70 - 100) mg/dL Calcium (8.5-10.3) mg/dL Total Bilirubin (0.2-1.0) mg/dL AST (10-42) IU/L ALT (10-60) IU/L Alkaline Phosphatase (42-121) IU/L B-Natriuretic Peptide (5-100) pg/mL Total Protein (6.7-8.2) g/dL Albumin (3.2-5.5) g/dL Globulin (2.1-4.2) g/dL Albumin/Globulin Ratio (1.0-2.2) 09/22/17 09/22/17 09/22/17 Range/Units 07:26 05:26 05:26 WBC 12.3 H (4.8-10.8) x10^3/uL RBC 4.08 L (4.70-6.10) 10^6/uL Hgb 11.2 L (14.0-18.0) g/dL Hct 33.9 L (42.0-52.0) % MCV 83.0 (80.0-94.0) fL MCH 27.5 (27.0-31.0) pg MCHC 33.1 (32.0-36.0) g/dL RDW 13.8 (12.0-15.0) % Plt Count 444 (130-450) 10^3/uL MPV 7.6 (7.4-11.4) fL Neut # 9.0 H (1.5-6.6) 10^3/uL Lymph # 1.6 (1.5-3.5) 10^3/uL [place] # 1.4 H (0.0-1.0) 10^3/uL Eos # 0.2 (0.0-0.7) 10^3/uL Baso # 0.0 (0.0-0.1) 10^3/uL Absolute Nucleated RBC 0.00 x10^3/uL Nucleated RBC % 0.0 /100WBC Sodium (135-145) mmol/L Potassium (3.5-5.0) mmol/L Chloride (101-111) mmol/L Carbon Dioxide (21-32) mmol/L Anion Gap (6-13) BUN (6-20) mg/dL Creatinine (0.6-1.2) mg/dL Estimated GFR (MDRD) (>89) Glucose (70-100) mg/dL POC Whole Bld Glucose 167 H (70 - 100) mg/dL Calcium (8.5-10.3) mg/dL Total Bilirubin (0.2-1.0) mg/dL AST (10-42) IU/L ALT (10-60) IU/L Alkaline Phosphatase (42-121) IU/L B-Natriuretic Peptide 17 (5-100) pg/mL Total Protein (6.7-8.2) g/dL Albumin (3.2-5.5) g/dL Globulin (2.1-4.2) g/dL Albumin/Globulin Ratio (1.0-2.2) 09/22/17 Range/Units 05:26 WBC (4.8-10.8) x10^3/uL RBC (4.70-6.10) 10^6/uL Hgb (14.0-18.0) g/dL Hct (42.0-52.0) % MCV (80.0-94.0) fL MCH (27.0-31.0) pg MCHC (32.0-36.0) g/dL RDW (12.0-15.0) % Plt Count (130-450) 10^3/uL MPV (7.4-11.4) fL Neut # (1.5-6.6) 10^3/uL Lymph # (1.5-3.5) 10^3/uL [place] # (0.0-1.0) 10^3/uL Eos # (0.0-0.7) 10^3/uL Baso # (0.0-0.1) 10^3/uL Absolute Nucleated RBC x10^3/uL Nucleated RBC % /100WBC Sodium 133 L (135-145) mmol/L Potassium 4.0 (3.5-5.0) mmol/L Chloride 98 L (101-111) mmol/L Carbon Dioxide 26 (21-32) mmol/L Anion Gap 9.0 (6-13) BUN 10 (6-20) mg/dL Creatinine 0.7 (0.6-1.2) mg/dL Estimated GFR (MDRD) 117 (>89) Glucose 198 H (70-100) mg/dL POC Whole Bld Glucose (70 - 100) mg/dL Calcium 7.9 L (8.5-10.3) mg/dL Total Bilirubin 0.4 (0.2-1.0) mg/dL AST 30 (10-42) IU/L ALT 31 (10-60) IU/L Alkaline Phosphatase 71 (42-121) IU/L B-Natriuretic Peptide (5-100) pg/mL Total Protein 6.8 (6.7-8.2) g/dL Albumin 2.2 L (3.2-5.5) g/dL Globulin 4.6 H (2.1-4.2) g/dL Albumin/Globulin Ratio 0.5 L (1.0-2.2) - Current Medications Current Medications: Current Medications Generic Name Dose Route Start Last Admin Trade Name Freq PRN Reason Stop Dose Admin Atorvastatin Calcium 40 mg 09/21/17 09:00 09/22/17 08:48 Lipitor PO 40 mg DAILY SARAI Administration Ceftriaxone Sodium 2 gm/ 100 mls @ 200 mls/hr 09/20/17 21:00 09/22/17 22:38 Sodium Chloride IV Infused HS SARAI Infusion Clindamycin Phosphate 50 mls @ 100 mls/hr 09/21/17 14:00 09/22/17 22:37 Cleocin 600 Mg/50 Ml IV Infused Q8HR SARAI Infusion Sodium Chloride 1,000 mls @ 20 mls/hr 09/21/17 20:00 09/22/17 14:37 Normal Saline 0.9% IV 0 mls/hr .Q48H SARAI Infusion TKO Ibuprofen 600 mg 09/21/17 00:00 09/22/17 17:57 Motrin PO 600 mg Q6HR SARAI Administration Insulin Aspart 1 - 9 unit 09/21/17 08:00 09/22/17 21:14 Novolog SUBQ 5 unit 0800,1200,1700,2100 SARAI Administration Protocol Morphine Sulfate/Sodium Chloride 50 mg 09/21/17 17:10 09/21/17 18:09 Morphine Quality Assurance Associate (Use Quality Assurance Associate Order Set) IV 50 mg STEAM BOX HAND PRN Administration PAIN Protocol Pantoprazole Sodium 40 mg 09/21/17 09:00 09/22/17 06:10 Protonix PO 40 mg QDAC SARAI Administration Polyethylene Glycol 17 gm 09/21/17 09:00 09/22/17 08:48 Miralax PO Not Given DAILY [facility] Sodium Chloride 10 ml 09/20/17 17:00 09/21/17 18:13 Normal Saline Flush 0.9% IVP 10 ml PRN PRN Administration NEEDED PER PROVIDER ORDERS Sodium Chloride 10 ml 09/20/17 22:00 09/22/17 21:42 Normal Saline Flush 0.9% IVP Not Given Q8HR [facility] Impression/Plan - Problem List Problem List: s/p placement of chest tube for empyema. Cultures pending-sent to outside lab Drained 300 ml since placement continue iv antibiotics Check ct scan of chest in am.
[2017-09-23] MEDS: IBUPROFEN 600 MG TABLET PO SCH ×3 (00:42→12:08)
[2017-09-23 05:38] LABS: BASOPHILS % (AUTO) 0.4 %; EOSINOPHILS # (AUTO) 0.5 10^3/uL (0.0-0.7); EOSINOPHILS % (AUTO) 4.9 %; HGB - HEMOGLOBIN 10.9 g/dL (14.0-18.0); LYMPHOCYTES # (AUTO) 2.2 10^3/uL (1.5-3.5); LYMPHOCYTES % (AUTO) 21.5 %; MEAN CORPUSCULAR HEMOGLOBIN 27.7 pg (27.0-31.0); MEAN CORPUSCULAR HGB CONC 33.3 g/dL (32.0-36.0); MEAN CORPUSCULAR VOLUME 83.3 fL (80.0-94.0); MEAN PLATELET VOLUME 7.9 fL (7.4-11.4); MONOCYTES # (AUTO) 1.1 10^3/uL (0.0-1.0); MONOCYTES % (AUTO) 10.8 %; NEUTROPHILS # (AUTO) 6.2 10^3/uL (1.5-6.6); NEUTROPHILS % (AUTO) 62.4 %; PLT - PLATELET COUNT 445 10^3/uL (130-450); RED BLOOD COUNT 3.93 10^6/uL (4.70-6.10); RED CELL DISTRIBUTION WIDTH 14.1 % (12.0-15.0)
[2017-09-23 05:43] LABS: ALBUMIN 2.2 g/dL (3.2-5.5); ALBUMIN/GLOBULIN RATIO 0.5 (1.0-2.2); BILIRUBIN,TOTAL 0.4 mg/dL (0.2-1.0); CALCIUM 7.9 mg/dL (8.5-10.3); CREATININE 0.7 mg/dL (0.6-1.2); MAGNESIUM 1.7 mg/dL (1.7-2.8); PHOSPHORUS 4.1 mg/dL (2.5-4.6); TOTAL PROTEIN 6.8 g/dL (6.7-8.2)
[2017-09-23] MEDS: PANTOPRAZOLE 40 MG TABLET PO SCH (06:10)
[2017-09-23] MEDS: CLINDAMYCIN 600 MG/50 ML 50 ML IV SCH ×2 (06:10→14:04)
[2017-09-23] MEDS: SODIUM CHLORIDE FLUSH 0.9% 10 ML SYRINGE IVP SCH ×2 (06:13→14:04)
[2017-09-23] MEDS ORDERED: DIPHENOX/ATROPINE 2.5/0.025 MG TABLET PO PRN (07:04)
[2017-09-23] MEDS ORDERED: IOPAMIDOL-300 100 ML VIAL ONE (08:25)
[2017-09-23] MEDS ORDERED: POTASSIUM CHLORIDE 20 MEQ TABLET PO ONE (08:44)
[2017-09-23] MEDS: INSULIN ASPART 300 UNIT/3 ML PEN SUBQ SCH ×2 (08:57→12:07)
[2017-09-23] MEDS: ATORVASTATIN 40 MG TABLET PO SCH (08:59)
[2017-09-23] MEDS ORDERED: SACCHAROMYCES BOULARDII 250 MG CAPSULE PO SCH (09:00)
[2017-09-23] MEDS ORDERED: MAGNESIUM OXIDE 400 MG TABLET PO SCH (09:00)
[2017-09-23] MEDS ORDERED: IOPAMIDOL-300 100 ML VIAL IVP ONE (09:41)
--- NOTE | 2017-09-23 12:21 | Discharge Plan ---
Discharge Plan Disposition: 02 Transfer Acute Care Hosp Condition: Good Diet: Diabetic Activity Restrictions: No Restrictions Shower Restrictions: No Driving Restrictions: Yes Weight Bearing: Full Weight Additional Instructions or Follow Up instructions: Care to continue at [facility] as per CV surgery and hospitalist teams. No Smoking: If you smoke, Please STOP! Call for help. Follow-up with: JARRETT GABRIEL MD [Primary Care Provider] -
--- NOTE | 2017-09-23 12:24 | DISCHARGE SUMMARY ---
Discharge Summary Admit Date: 09/20/17 Discharge Date: 09/23/17 Discharging Provider: QUINTIN Cunningham Primary Care Provider: Clay La Code Status: Attempt Resuscitation Condition at Discharge: Good Discharge Disposition: 02 Transfer Acute Care Hosp Discharge Facility Name: [facility] - DIAGNOSES Admission Diagnoses: Pneumonia, unspecified organism (J18.9) Personal history of pneumonia (recurrent) (Z87.01) Type 2 diabetes mellitus with other specified complication (E11.69) Orthopnea (R06.01) Discharge Diagnoses with Status of Each Condition: Pneumonia, unspecified organism (J18.9) ongoing, recurrent. Medical management. Personal history of pneumonia (recurrent) (Z87.01) chronic. Stable. Type 2 diabetes mellitus with other specified complication (E11.69) ongoing, controlled with diet and medications. Orthopnea (R06.01) resolved. 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 Stable and no need for oxygen. 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 According to the patient, he pulled his right shoulder muscle, which radiated to his right torso on . He had long standing debility from this event which caused him to sleep in a recliner for some time, in order to be comfortable enough to get sleep. The patient came to this ED on 09/01/17 and was treated with a Z-sang, and admits to finishing the whole antibiotic course. For the past 4 days the patient has had fevers up to 101.1 per , chills, activity intolerance, progressive shortness of breath, continued orthopnea, anorexia, and non- productive cough. Once in the ED a thoracentesis was completed and 600ml of purulent fluid was taken out, sent to the lab for testing including cytology. - CONSULTS | PROCEDURES Consultations: General surgery, Dr. Dayron Joseph. - HOSPITAL COURSE Hospital Course: All medical problems/issues while hospitalized: [place]: Patient most recently had pneumonia on 09/01/17 and was treated with a Z-sang. According to a 2-view chest x-ray, patient has right lobe pneumonia. General surgery, Dr. Joseph has placed a right large bore chest tube and it is on continuous low wall suction. Cultures from 1st ED pleural sample are pending , including cytology. IV antibiotics, incentive spirometry and nebulizers. Encourage ambulation. Patient continues to be NON-oxygen dependent and is compliant with using the incentive spirometry. Diabetes Mellitus type 2: HgA1C was elevated at 11.5. Lantus was increased today to 72 units BID due to early AM blood glucose. Continue to monitor blood glucose and holding Metformin as a precaution in the event of needing contrast for CT scan. Orthopnea: Patient has been chair dependent since his recent illness. This has been much improved since chest tube is in place. Patient admits to sleeping in the bed for part of last night. Encourage patient to lie in bed at night. Patient had 600ml of purulent fluid taken off right lung in the ED using ultrasound. General surgery consulted, Dr. Joseph. A large bore right anterior chest tube is to wall suction. Dressing appears to be CDI with no drainage. No crepitus noted. Morphine [employer]POR[employer] TRAVEL [employer]ENT for pain control post procedure and maintain wall suction. Disposition: Patient will be transferred via ambulance to [facility] for CV surgery and Infectious disease stewardship. Patient left in stable condition with a right chest tube in place and on water seal. No oxygen is needed. - ALLERGIES Allergies/Adverse Reactions: Allergies Allergy/AdvReac Type Severity Reaction Status Date / Time yellow fever vaccine live AdvReac Unknown Verified 09/20/17 12:54 - MEDICATIONS Home Medications: Ambulatory Orders Medication Instructions Recorded Confirmed Atorvastatin [Lipitor] 40 mg PO DAILY 09/01/17 09/20/17 Insulin Glargine [Lantus Solostar] 70 units SUBQ BID 09/01/17 09/20/17 Aspirin Chewable [[place] 81 mg PO DAILY 09/21/17 09/21/17 Aspirin] Esomeprazole Magnesium [Nexium] 40 mg PO QDAC 09/21/17 09/21/17 Lisinopril [Zestril] 10 mg PO DAILY 09/21/17 09/21/17 HYDROcod/ACETAM 5/325 [[place] 5/325] 1 tab PO Q4HR PRN tablet 09/23/17 Ibuprofen [Motrin] 600 mg PO Q6HR tablet 09/23/17 Insulin Aspart [NovoLOG] 1 - 9 unit SUBQ 09/23/17 0800,1200,1700,2100 pen cefTRIAXone [Rocephin 2 gram] 2 gm IV HS vial 09/23/17 guaiFENesin [Mucinex] 600 mg PO BID PRN tablet 09/23/17 - PHYSICAL EXAM AT DISCHARGE General Appearance: positive: No acute distress, Alert, Anxious (worries about specific details or if "plans change".) Eyes Bilateral: positive: Normal inspection, PERRL ENT: positive: ENT inspection nml, Pharynx nml, No signs of dehydration Neck: positive: Nml inspection, Thyroid nml, No JVD, Trachea midline Respiratory: positive: No respiratory distress, Rhonchi (coarse crackles noted in right lobes, no crepitus or air leak in chest tube.) Cardiovascular: positive: Regular rate & rhythm, No gallop, Systolic murmur, Decreased pulse(s) Peripheral Pulses: positive: 1+ Abdomen: positive: Non-tender, Nml bowel sounds, Hepatomegaly Rectal: positive: Other (diarrhea, stool sent for c-diff. PCR negative.) Back: positive: Nml inspection, CVA tenderness (R) (related to large bore chest tube. Dressing secure and CDI.) Skin: positive: Color nml, No rash, Warm Extremities: positive: Non-tender, Full ROM, Nml appearance, Pedal edema ( dependent.) Neurologic/Psychiatric: positive: Oriented x3, CN's nml (2-12), Motor nml, Sensation nml, Depressed mood/affect, Other (nervous.) Reflexes: Bicep (R): 3+, Bicep (L): 3+ - LABS Result Diagrams: 09/23/17 04:53 09/23/17 04:53 - DIAGNOSTIC IMAGING Diagnostic Imaging Results: Prelim report reviewed, Final report reviewed Diagnostic Imaging Results Comments: Chest x-ray 2-view: 09/20/17: FINDINGS: Lungs/Pleura: There is increased opacity within the right lung base. There is no evidence of pneumothorax. The left lung is relatively clear. Mediastinum: Within exam limitations, the cardiomediastinal contour is normal. Other: None. IMPRESSION: 1. There is heterogeneous opacity within the right lung base which may represent combination of effusion and airspace disease. 2. There is no evidence of pneumothorax Fluroscopic guided CT: 09/21/17: FINDINGS: Fluoroscopy for procedure guidance. IMPRESSION: Fluoroscopic guidance provided for Dr. Joseph. Total fluoroscopy time: 56 seconds. Number of images: 1. Chest 1-view: 09/21/17: FINDINGS: Lungs/Pleura: Right chest tube tip projects over the medial lung base. There is opacity within the left base which likely represents effusion and airspace disease. No evidence of pneumothorax. Mediastinum: Within exam limitations, the cardiomediastinal contour is normal. Other: None. IMPRESSION: Right chest tube tip projects over the medial lung base. Interval decrease in opacity of airspace disease within the right base. No evidence of pneumothorax. Chest CT 09/23/17: Final results pending. - FOLLOW UP Follow Up: Care to continue at [facility] for CV surgery and ID stewardship. - TIME SPENT Time Spent in Discharge (Minutes): 60
[2017-09-23 12:46] VITALS: BP 130/80
--- NOTE | 2017-09-23 14:33 | CT Report ---
EXAM: CT CHEST EXAM DATE: 09/23/2017 09:42 AM. CLINICAL HISTORY: F/u drainage of empyema. COMPARISONS: Chest radiography 09/21/2017 and 09/20/2017. TECHNIQUE: Routine helical CT imaging was performed through the chest. IV contrast: 80 cc Isovue 300. Reconstructions: Coronal and sagittal. In accordance with CT protocol optimization, one or more of the following dose reduction techniques w ere utilized for this exam: automated exposure control, adjustment of mA and/or KV based on patient s ize, or use of iterative reconstructive technique. FINDINGS: Lungs/Pleura: No significant residual right pleural fluid. There is a small basilar right pneumothora x. Large bore right chest tube tip is in the posterior right costophrenic angle. There is right lower lobe atelectasis/consolidation and a peripheral parenchymal rind along the inferior right lung. No c onsolidation on the left. No left pleural effusion or pneumothorax. Mediastinum: The heart size is normal. No enlarged lymph nodes by CT size criteria. No pericardial ef fusion. Bones: Unremarkable. Visualized Abdomen: Cholelithiasis. Probable hepatic steatosis. Other: None. IMPRESSION: 1. No significant right pleural fluid. 2. Small basilar right pneumothorax with chest tube in place. Findings suggest early/mild trapped armiro g. 3. Chronic and incidental findings as above. [facility] Referring Provider Line: [phone] SITE ID: [id number]
--- NOTE | 2017-09-23 22:17 | PROCEDURE REPORT ---
DATE OF SERVICE: 09/21/2017 Physician: Chacorta Joseph MD DATE OF PROCEDURE: 09/21/2017 PREOPERATIVE DIAGNOSIS: Right empyema. POSTOPERATIVE DIAGNOSIS: Right empyema. PROCEDURE PERFORMED: Placement of right chest tube with fluoroscopic assistance. OPERATING SURGEON: Dr. Joseph. ANESTHESIA: MAC. INDICATIONS FOR PROCEDURE: Patient is a 57-year-old male who presents with a fluid collection in the right chest. He had underwent a thoracentesis in the emergency room where 600 mL of purulent fluid was asp irated. This was positive for gram-positive cocci. Because of the empyema, it is recommended a chest tube wo uld be placed. FINDINGS AT SURGERY: Patient had a 36-[place] chest tube placed in the right chest, empyema. The pat ient's upper lung was fused to the chest wall as well as the inferior portion to where the chest tube was pl aced. The abscess cavity extended medially and posteriorly. Therefore, the chest tube could only be placed in this location. Upon entering the empyema, there is significant amount of pus draining out, having at leas t 300-400 mL coming out from just placement of a finger. After a chest tube placed, another 300 mL of purulent fluid drained out immediately. PROCEDURE: After informed consent was obtained, the patient was taken to the operating room, placed in supine position.: MAC anesthesia was administered. The patient's right chest was then prepped and draped i n usual sterile fashion. The skin overlying the sixth rib in the mid axillary line was then injected with lo cecy anesthesia. An incision was then made over the rib in the skin using the scalpel. Cautery was then deepened the incision to the rib. A clamp was then placed over top of the sixth rib with the fifth intercosta l space then being entered. There was a thick purulent fluid draining out through this incision. The finger was then inserted and the patient's lung was quite hard. Also, the lung was fused to the chest wall anteriorl y as far as I could feel. Inferiorly, the lung was also adherent. This abscess cavity extended posteriorly. The suction Yankauer was then inserted and suctioning out the different material in this abscess empyema cavity. Once this had been performed, a 36 chest tube was then placed through the opening in into the empyema cavity. Fluoroscopy was used to guide it as far in as possible. The chest tube was secured to skin using 0 s ilk suture. It was then connected to the chest tube collecting system. Xeroform gauze was then applied along with dry dressing. The patient was then awakened and taken from the procedure room in stable conditi on. ESTIMATED BLOOD LOSS: Less than 10 mL. COMPLICATIONS: None. CONDITION OF THE PATIENT IN THE PROCEDURE: Stable. SPECIMENS: None. DRAINS OR PACKS: A #36 chest tube was placed in the right empyema cavity. TD: 09/23/2017 13:45
--- NOTE | 2017-10-15 07:23 | CONSULTATION NOTE ---
DATE OF SERVICE: 09/21/2017 Physician: Chacorta Joseph MD DATE OF CONSULTATION: 09/21/2017 REASON FOR CONSULTATION: Right empyema. HISTORY OF PRESENT ILLNESS: The patient is a 57-year-old male who comes in the emergency room because of progressive shortness of breath along with right chest pain. His problems began in late when he had injured his shoulder and had decreased mobility because of this. He then came to the emergency room with a cough and was sent home with a Z-Ar. He now presents with a 3-4 day history of progressive shortness of breath, right chest pain and a cough. In the emergency room, he was found to have a large right pleural effusion. He had underwent a thoracentesis in which 600 mL of purulent fluid was removed. He has now been placed on antibiotics. His white blood cell count is now 7.8 and he has been afebrile. Because of the purulent fluid in his right chest, it is recommended that he undergo a right chest tube placement. Therefore, Surgery consult has been requested. PAST MEDICAL HISTORY: 1. Diabetes. 2. Obesity. 3. Gastroesophageal reflux disease. 4. Hypertension. 5. Hyperlipidemia. HABITS: The patient quit smoking. Denies any drug or alcohol use. SOCIAL HISTORY: Patient is . FAMILY HISTORY: COPD, emphysema and stroke along with coronary artery disease. PAST SURGICAL HISTORY: None. MEDICATIONS: 1. Lipitor. 2. Nexium. 3. Insulin. 4. Metformin. ALLERGIES TO MEDICATIONS: None. CHIEF COMPLAINT: Shortness of breath, not feeling well and lethargy. REVIEW OF SYSTEMS: A 12-point review of systems was obtained with pertinent positives and negatives discussed and all others being negative. PHYSICAL EXAMINATION: VITAL SIGNS: Temperature is 36.4, heart rate 78, blood pressure 143/81. GENERAL: The patient is sitting up in bed, not in any distress. EYES: Nonicteric. NECK: No lymphadenopathy. HEART: Regular. LUNGS: Diminished on the right side. ABDOMEN: Soft, nontender. EXTREMITIES: No edema or cyanosis. NEUROLOGIC: The patient appears to be neurologically intact without any deficit. PSYCHOLOGICAL: The patient is coherent, cooperative and appears to answer questions fully. DIAGNOSTIC DATA: See history of present illness. ASSESSMENT: Right empyema. PLAN: 1. I have recommended that he undergo a right chest tube placement. Risks and possible complication of the procedure have been explained to him. He accepted the risks and wishes to proceed. 2. Diabetes, on insulin and medications. 3. Hypertension, controlled with medications. PLAN: 1. N.p.o. 2. IV fluids. 3. Chest tube placement in the operating room with fluoroscopy. TD: 10/15/2017 08:22
== END 2017-09-23 14:50 | disposition short-term general hospital (02) | DRG 177 ==
LOC: ED 12:35 → MS2 17:00
PROVIDERS: ADMIT Nurse Practitioner; ATTEND Nurse Practitioner
PROC: 0W9930Z Drainage of Right Pleural Cavity with Drainage Device, Percutaneous Approach (ICD-10-PCS; principal; 2017-09-21 16:00)
DX: J86.9 Pyothorax without fistula (principal); J18.9 Pneumonia, unspecified organism; Z68.41 Body mass index [BMI] 40.0-44.9, adult; E11.65 Type 2 diabetes mellitus with hyperglycemia; E66.01 Morbid (severe) obesity due to excess calories; K21.9 Gastro-esophageal reflux disease without esophagitis; I10 Essential (primary) hypertension; E78.5 Hyperlipidemia, unspecified; Z79.4 Long term (current) use of insulin; Z87.891 Personal history of nicotine dependence; Z79.82 Long term (current) use of aspirin
CPT/HCPCS: 32554; 36415; 71010; 71020; 71260; 80053; 81599; 83036; 83605; 83690; 83735; 83880; 84100; 84157; 85025; 85610; 85651; 86140; 87040; 87070; 87077; 87205; 87493; 89051; 93005; 96365; 99283; 99284